=== PATIENT | female | born 1970 | race Caucasian/White ===

== ENCOUNTER → 2016-11-16 | Outpatient (CLI) | payer OTHER ==
[~2016-11-16] MED LIST: CA C1TAB28 PO; DALF10TA PO; DESM10SP4 NS; FOLI1TAB16 PO; METH1POW21 MC; METH2.5T PO; SOLI5TAB2 PO; SULF1TAB23 PO
== END | disposition home or self-care (01) ==
LOC: PMGWOUND 10:58
PROVIDERS: ATTEND Emergency Medicine Undersea and Hyperbaric Medicine
DX: L89.223 Pressure ulcer of left hip, stage 3 (principal); L89.323 Pressure ulcer of left buttock, stage 3; G35 Multiple sclerosis; F17.200 Nicotine dependence, unspecified, uncomplicated; Z72.89 Other problems related to lifestyle
CPT/HCPCS: 97597

== ENCOUNTER → 2016-11-30 | Outpatient (CLI) | payer OTHER | END | disposition home or self-care (01) | LOC: PMGWOUND 11:23 | PROVIDERS: ATTEND Emergency Medicine Undersea and Hyperbaric Medicine | DX: L89.323 Pressure ulcer of left buttock, stage 3 (principal); L89.223 Pressure ulcer of left hip, stage 3; G35 Multiple sclerosis; F17.210 Nicotine dependence, cigarettes, uncomplicated; Z72.89 Other problems related to lifestyle | CPT/HCPCS: 97597 ==

== ENCOUNTER → 2016-12-18 | Outpatient (CLI) | payer OTHER | END | disposition home or self-care (01) | LOC: PMGWOUND 10:35 | PROVIDERS: ATTEND Emergency Medicine Undersea and Hyperbaric Medicine | DX: L89.223 Pressure ulcer of left hip, stage 3 (principal); L89.323 Pressure ulcer of left buttock, stage 3; G35 Multiple sclerosis; F17.210 Nicotine dependence, cigarettes, uncomplicated; Z72.89 Other problems related to lifestyle | CPT/HCPCS: 99214 ==

== ENCOUNTER → 2017-01-01 | Outpatient (CLI) | payer OTHER | END | disposition home or self-care (01) | LOC: PMGWOUND 10:24 | PROVIDERS: ATTEND Preventive Medicine Undersea and Hyperbaric Medicine | DX: L89.323 Pressure ulcer of left buttock, stage 3 (principal); L89.223 Pressure ulcer of left hip, stage 3; G35 Multiple sclerosis; F17.210 Nicotine dependence, cigarettes, uncomplicated; Z72.89 Other problems related to lifestyle | CPT/HCPCS: 99214 ==

== ENCOUNTER → 2017-02-15 | Outpatient (CLI) | payer OTHER | END | disposition home or self-care (01) | LOC: PMGWOUND 10:31 | PROVIDERS: ATTEND Emergency Medicine Undersea and Hyperbaric Medicine | DX: L89.223 Pressure ulcer of left hip, stage 3 (principal); L89.323 Pressure ulcer of left buttock, stage 3; G35 Multiple sclerosis; F17.210 Nicotine dependence, cigarettes, uncomplicated; Z72.89 Other problems related to lifestyle | CPT/HCPCS: 97597 ==

== ENCOUNTER → 2017-08-30 | Outpatient (CLI) | payer OTHER | END | disposition home or self-care (01) | LOC: PMGWOUND 10:00 | DX: L89.223 Pressure ulcer of left hip, stage 3 (principal); G35 Multiple sclerosis; F17.210 Nicotine dependence, cigarettes, uncomplicated | CPT/HCPCS: 99212 ==

== ENCOUNTER 2018-03-24 13:22 | Inpatient (IN) | payer BC, OTHER ==
[~2018-03-24] VITALS: Ht 165.1 cm; Wt 46.3 kg
[2018-03-24 15:00] VITALS: BP 124/73
[2018-03-24 15:33] LABS: BASO % 0 % (0-3); EOS % 0 % (0-3); HEMATOCRIT 38.2 % (36.0-47.0); LYMPH # 0.4 x10^3/uL (1.0-4.8); LYMPH % 3 % (24-48); MEAN CORPUSCULAR HEMOGLOBIN 29 pg (25-35); MEAN CORPUSCULAR HGB CONC 34 g/dL (31-37); MEAN CORPUSCULAR VOLUME 86 fL (79-100); MONO # 0.8 x10^3/uL (0.0-1.1); MONO % 5 % (0-9); NEUT # 13.9 x10^3uL (1.8-7.7); NEUT % 92 % (31-73); PLATELET COUNT 218 x10^3/uL (140-400); RED BLOOD COUNT 4.44 x10^6/uL (3.50-5.40); RED CELL DISTRIBUTION WIDTH 12.9 % (11.5-14.5); WHITE BLOOD COUNT 15.1 x10^3/uL (4.0-11.0)
--- NOTE | 2018-03-24 15:48 | RAD ---
EXAM: Chest, single view. HISTORY: Fever. COMPARISON: None. FINDINGS: A frontal view of the chest is obtained. There is no infiltrate, pleural effusion or pneumothorax. The heart is normal in size. IMPRESSION: No acute pulmonary finding. Electronically signed by: Amanda Gotti MD (03/24/2018 3:45 PM) [place] [id number]
[2018-03-24 15:50] LABS: % BANDS 11 % (0-9); % LYMPHS 2 % (24-48); % MONOS 2 % (0-10); % SEGS 85 % (35-66); CALCIUM 9.4 mg/dL (8.5-10.1); CREATININE 0.9 mg/dL (0.6-1.0); GFR 67.1; PLT ESTIMATE ADEQUATE (ADEQUATE); POTASSIUM 3.5 mmol/L (3.5-5.1)
[2018-03-24] MEDS: cefTRIAXone IV Push 1 GM VIAL. IVP SCH (16:09)
[2018-03-24] MEDS: ACETAMINOPHEN 325 MG TABLET. PO PRN (16:09)
[2018-03-24] MEDS: IV DEXTROSE 5%-LACT RINGERS 1,000 ML IV SCH (16:10)
[2018-03-24] MEDS ORDERED: CHOL100013 PO (16:34)
[2018-03-24 19:00] VITALS: BP 146/53
[2018-03-24] MEDS: LACTOBACILLUS RHAMNOSUS GG 1 CAPSULE. PO SCH (22:06)
[2018-03-24 23:00] VITALS: BP 116/69
[2018-03-25] MEDS: IV DEXTROSE 5%-LACT RINGERS 1,000 ML IV SCH ×3 (01:11→21:59)
[2018-03-25] MEDS: ACETAMINOPHEN 325 MG TABLET. PO PRN ×2 (01:11→18:30)
[2018-03-25 03:00] VITALS: BP 91/49
[2018-03-25 07:00] VITALS: BP 116/67
--- NOTE | 2018-03-25 08:49 | PDOC ---
Provider Note Provider Note [id number] ALLIE VELÁSQUEZ MD Mar 25, 2018 08:49
[2018-03-25] MEDS: LACTOBACILLUS RHAMNOSUS GG 1 CAPSULE. PO SCH ×2 (09:04→21:56)
[2018-03-25 11:00] VITALS: BP 110/54
[2018-03-25 15:00] VITALS: BP 90/71
[2018-03-25] MEDS: cefTRIAXone IV Push 1 GM VIAL. IVP SCH (15:48)
--- NOTE | 2018-03-25 16:23 | HP ---
ADMIT DATE: 03/24/2018 CHIEF COMPLAINT: Fever. HISTORY OF PRESENT ILLNESS: A 48-year-old white female has a history of [id number] multiple sclerosis and is wheelchair bound. She has a suprapubic catheter in place and was feeling well until about 24 hours prior to admission. She has had fever, chills, weakness and malaise, without any other symptoms including cough, congestion, nausea, vomiting, diarrhea, wounds or any other areas specifically of pain. She was seen in the office and felt that she might have a urinary tract infection as the most likely source and admitted for possible sepsis. PAST MEDICAL HISTORY: Well documented with multiple sclerosis and is followed [facility]. No other serious known medical problems. MEDICATIONS: No medications. ALLERGIES: No known allergies. IMMUNIZATIONS: Up-to-date. FAMILY HISTORY: Unremarkable. SOCIAL HISTORY: She has a daughter who lives in the home. , not employed because of illness. REVIEW OF SYSTEMS: No other specific complaints at this time. PHYSICAL EXAMINATION: ENT: All within normal limits. Dentition is mildly reduced. Mucosa pink and moist. NECK: No masses, nodes or meningeal signs. LUNGS: Clear, without tachypnea. CARDIOVASCULAR: Regular rate, tachycardia about 110. No murmur. ABDOMEN: Soft, benign and nontender. BACK: No flank tenderness is noted bilaterally and suprapubic catheter is not examined. EXTREMITIES: Unremarkable. No joint or skin lesions. NEUROLOGIC: She has diffuse contractures and spasticity, consistent with multiple sclerosis diagnosis. ASSESSMENT: Febrile illness with a suprapubic catheter in place because of multiple sclerosis. Most likely source would be urosepsis. PLAN: Admit, IV Rocephin after cultures. ALLIE VELÁSQUEZ MD DR: ELIDA/margaux JOB#: [id number] / [id number]
--- NOTE | 2018-03-25 16:38 | PN ---
DATE: 03/25/2018 SUBJECTIVE: States she is feeling a little bit better than yesterday, though still very weak. She has no specific new symptoms. Temperature still runs in the 100 and 101 range with mild tachycardia. Physical exam still unremarkable. No flank tenderness or new physical findings indicative of a source for infection. White count mildly elevated. Urine culture and blood cultures are pending at this time and the chest x-ray is clear. Still feel like urosepsis is the most likely diagnosis. So we will continue Rocephin, pending urine culture reports. Also, continue IV fluids for support of possible urosepsis as well as more vigorous urine output. ALLIE VELÁSQUEZ MD DR: ELIDA/margaux JOB#: [id number] / [id number]
[2018-03-25] MEDS: IV NORMAL SALINE 1000ML BAG 1,000 ML IV SCH ×2 (19:03→19:21)
[2018-03-25 19:20] VITALS: BP 91/52
[2018-03-25 23:36] VITALS: BP 85/49
[2018-03-26 03:40] VITALS: BP 96/46
[2018-03-26 07:00] VITALS: BP 77/55
[2018-03-26] MEDS: LACTOBACILLUS RHAMNOSUS GG 1 CAPSULE. PO SCH ×2 (09:12→20:25)
[2018-03-26] MEDS: IV DEXTROSE 5%-LACT RINGERS 1,000 ML IV SCH ×3 (09:13→20:25)
[2018-03-26 11:00] VITALS: BP 93/51
[2018-03-26] MEDS ORDERED: SENNOSIDES/DOCUSATE 8.6/50MG TABLET. PO ONE (14:15)
--- NOTE | 2018-03-26 15:06 | PN ---
DATE: 03/26/2018 LOCATION: She is in room 414. SUBJECTIVE: The patient is awake, alert, feeling better and would like to go home. She does understand need for urine culture to come back prior to the same though. OBJECTIVE: VITAL SIGNS: Stable with a T-max of 99.9 in the last 24 hours, which is better. Blood pressures are on the low side. CHEST: Clear. HEART: Regular. ABDOMEN: Benign. No flank tenderness. LABORATORY DATA: White count was 15,000 on admission with a bandemia. Blood cultures are negative to date. Urine culture is pending. Chest x-ray was normal. IMPRESSION: Sepsis, likely on the basis of urinary tract infection, awaiting urine cultures at this point. PLAN: Continue to await cultures. We will recheck CBC in the morning. Otherwise, continue present antibiotics as she is clinically improving. MARY LOU COOLEY MD DR: ARMIDA/margaux JOB#: [id number] / [id number]
[2018-03-26] MEDS: cefTRIAXone IV Push 1 GM VIAL. IVP SCH (16:58)
[2018-03-26 19:00] VITALS: BP 98/51
[2018-03-26 23:00] VITALS: BP 106/64
[2018-03-27 03:00] VITALS: BP 115/56
[2018-03-27] MEDS: IV DEXTROSE 5%-LACT RINGERS 1,000 ML IV SCH ×2 (06:13→16:04)
[2018-03-27 07:00] VITALS: BP 103/57
[2018-03-27 07:21] LABS: BASO % 0 % (0-3); EOS # 0.1 x10^3/uL (0.0-0.7); EOS % 2 % (0-3); HEMATOCRIT 29.3 % (36.0-47.0); HEMOGLOBIN 10.1 g/dL (12.0-15.5); LYMPH # 1.2 x10^3/uL (1.0-4.8); LYMPH % 18 % (24-48); MEAN CORPUSCULAR HEMOGLOBIN 30 pg (25-35); MEAN CORPUSCULAR HGB CONC 35 g/dL (31-37); MEAN CORPUSCULAR VOLUME 86 fL (79-100); MONO # 0.7 x10^3/uL (0.0-1.1); MONO % 11 % (0-9); NEUT # 4.4 x10^3uL (1.8-7.7); NEUT % 69 % (31-73); PLATELET COUNT 171 x10^3/uL (140-400); RED BLOOD COUNT 3.41 x10^6/uL (3.50-5.40); RED CELL DISTRIBUTION WIDTH 12.9 % (11.5-14.5); WHITE BLOOD COUNT 6.4 x10^3/uL (4.0-11.0)
[2018-03-27] MEDS: LACTOBACILLUS RHAMNOSUS GG 1 CAPSULE. PO SCH ×2 (08:41→23:00)
[2018-03-27 11:00] VITALS: BP 97/55
--- NOTE | 2018-03-27 14:40 | PDOC ---
Infectious Disease Note Vital Sign Vital Signs Vital Signs Date Time Temp Pulse Resp B/P (MAP) Pulse Ox O2 Delivery O2 Flow Rate FiO2 03/27/18 11:00 98.3 85 18 97/55 (69) 98 Room Air 98.3 Labs Lab Laboratory Tests Test 03/27/18 07:05 White Blood Count 6.4 x10^3/uL (4.0-11.0) Red Blood Count 3.41 x10^6/uL (3.50-5.40) Hemoglobin 10.1 g/dL (12.0-15.5) Hematocrit 29.3 % (36.0-47.0) Mean Corpuscular Volume 86 fL (79-100) Mean Corpuscular Hemoglobin 30 pg (25-35) Mean Corpuscular Hemoglobin Concent 35 g/dL (31-37) Red Cell Distribution Width 12.9 % (11.5-14.5) Platelet Count 171 x10^3/uL (140-400) Neutrophils (%) (Auto) 69 % (31-73) Lymphocytes (%) (Auto) 18 % (24-48) Monocytes (%) (Auto) 11 % (0-9) Eosinophils (%) (Auto) 2 % (0-3) Basophils (%) (Auto) 0 % (0-3) Neutrophils # (Auto) 4.4 x10^3uL (1.8-7.7) Lymphocytes # (Auto) 1.2 x10^3/uL (1.0-4.8) Monocytes # (Auto) 0.7 x10^3/uL (0.0-1.1) Eosinophils # (Auto) 0.1 x10^3/uL (0.0-0.7) Basophils # (Auto) 0.0 x10^3/uL (0.0-0.2) Micro 03/25/18 Blood Culture - Preliminary, Resulted NO GROWTH AFTER 2 DAYS URINE CULTURE RES 1 Final Comment Greater than 2 organisms recovered, none predominant. Objective Assessment Sepsis w/ hypotension responsive to IVF Fever Leukocytosis - better MS Chronic supra-pubic catheter Plan Plan of Care Change to Zyvox and Zosyn Change supra-pubic cath CT abd/pelvis w/o contrast Probiotics Monitor labs/temp Supportive care D/w RN Thank you [id number] Pt seen and examined. Lab and other data reviewed Above Assessment and plan coformulated with [employer] . RALF CA APRN Mar 27, 2018 14:40 LEONARDO SUTTON MD Mar 27, 2018 15:38
[2018-03-27] MEDS: LINEZOLID 600 MG TABLET PO SCH ×2 (16:04→23:00)
[2018-03-27] MEDS: PIPERACILLIN/TAZOBACTAM 3.375 GM in IV NORMAL SALINE 50ML 50 ML IV SCH ×2 (16:05→23:00)
[2018-03-27 16:21] LABS: BILIRUBIN,URINE NEGATIVE (NEG); CLARITY,URINE CLEAR; COLOR,URINE YELLOW; NITRITE,URINE NEGATIVE (NEG); PH,URINE 8.5; PROTEIN,URINE NEGATIVE (NEG-TRACE); UROBILINOGEN,URINE 0.2 mg/dL (0.2 mg/dL)
[2018-03-27 16:50] LABS: SQUAMOUS EPITHELIAL CELL,UR OCC /LPF
[2018-03-27 16:51] LABS: BACTERIA,URINE MODERATE /HPF (0-FEW)
--- NOTE | 2018-03-27 18:10 | RAD ---
CT Abdomen; CT Pelvis without contrast INDICATION: FEVER, UTI COMPARISON: None. TECHNIQUE: Multiple contiguous axial images were obtained throughout the abdomen, and pelvis without the use of IV contrast. Axial images were reformatted into coronal and sagittal planes. FINDINGS: Small bilateral pleural effusions with resultant relaxation atelectasis. Abdomen findings: Evaluation of solid abdominal viscera is limited without the use of IV contrast. However, the liver, spleen, pancreas, and adrenal glands are unremarkable. Contracted gallbladder. No radiopaque gallstone or pericholecystic fluid. 0.5 cm obstructive calculus at the right ureteropelvic junction results in moderate right hydronephrosis and perinephric fat stranding. Additional bilateral punctate nonobstructive renal calculi. There is no significant mesenteric or retroperitoneal adenopathy identified, though evaluation is limited without intravenous contrast. There is no evidence of free intraperitoneal fluid or pneumoperitoneum. Large amount of colonic stool. Visualized portions of the bowel otherwise are grossly unremarkable. Mild atherosclerosis of the abdominal aorta and its branches. Pelvis findings: Suprapubic bladder catheter. No obvious bladder wall thickening. 0.8 x 0.2 cm calcific density in the region of the left ureterovesicular junction. Mild pelvic free fluid. No significant iliac or inguinal adenopathy is identified. No acute osseous abdomen abnormality. Suggestion of diffuse osteopenia. IMPRESSION: 1. 0.5 cm obstructive calculus at the right ureteropelvic junction results in moderate right hydronephrosis and perinephric fat stranding. 2. 0.8 x 0.2 cm calcific density in the region of the left ureterovesicular junction may relate to bladder wall calcification versus recently passed stone. No left hydronephrosis or hydroureter. 3. Additional bilateral punctate nonobstructive renal calculi. 4. Large amount of colonic stool. Correlate for constipation. 5. Small bilateral pleural effusions with resultant relaxation atelectasis. 6. Small amount of pelvic free fluid. PQRS Compliance Statement: One or more of the following individualized dose reduction techniques were utilized for this examination: 1. Automated exposure control 2. Adjustment of the mA and/or kV according to patient size 3. Use of iterative reconstruction technique Electronically signed by: Bry Castellon MD (03/27/2018 6:06 PM) [facility]
[2018-03-27 19:30] VITALS: BP 103/60
--- NOTE | 2018-03-27 19:45 | CONS ---
DATE OF CONSULTATION: 03/27/2018 REFERRING PHYSICIAN: Dr. Jean. REASON FOR CONSULTATION: Fever. HISTORY OF PRESENT ILLNESS: This patient is a 48-year-old female with a PMH of multiple sclerosis with a suprapubic catheter in place. While folding laundry, she became acutely weak and fatigued. She fell asleep and a few hours later, woke up with fever. She was found to have elevated white blood cell count of 15,100, segs 85% and bands 11%. She was dosed with ceftriaxone empirically for possibly urinary tract infection. Since admission, she had developed some hypotension responsive to IV fluids. Her white blood cell count has returned to normal. Clinically, she has been improving and is hoping to go home soon. However, last night she spiked a temperature of 101.3. Hence, ID consult. The patient has had the suprapubic catheter for about 2 years. It is normally changed every month. Aside from foul odor, she denies any drainage or redness around the insertion site. She denies chills or body aches. She denies cough, shortness of air or chest discomfort. Denies headache, nasal/sinus congestion or sore throat. Her bowels are fairly regular every other day. However, this week, they have been somewhat irregular and needed a stool softener. Her last bowel movement was yesterday. She denies nausea or vomiting. She has not been hospitalized in many years and has not been on any antibiotics over the last 12 months or more. PAST MEDICAL HISTORY: Multiple sclerosis, urinary retention. PAST SURGICAL HISTORY: Suprapubic catheter placement, section. SOCIAL HISTORY: The patient lives at home. She is wheelchair bound. She is . Her daughter lives with her. FAMILY HISTORY: Noncontributory. ALLERGIES: No known drug allergies. MEDICATIONS: Ceftriaxone, Tylenol, probiotics, IV fluids. REVIEW OF SYSTEMS: Per HPI, otherwise all other review of systems are negative. PHYSICAL EXAMINATION: GENERAL: The patient is slightly propped up in bed, alert, smiling. VITAL SIGNS: Temperature is 98.3, T-max 101.3, blood pressure 97/55, heart rate 85, respiratory rate 18, pulse oximetry is 98% on room air. HEENT: Normal conjunctivae. Oral cavity pink and dry. NECK: Supple. LUNGS: Clear to auscultation. HEART: S1, S2. ABDOMEN: Nondistended. Bowel sounds active. Soft, nontender. Suprapubic catheter intact. No signs of infection. EXTREMITIES: No gross edema or cyanosis. SKIN: Warm without rash. NEUROLOGIC: Alert and oriented x 3. LABORATORY DATA: Today's WBC 6.4 from 15.1, hemoglobin 10.1, platelet count 171,000. Recent sodium 134, potassium 3.5, creatinine 0.9, BUN 17, glucose 162. Lactic acid 1.3. Blood cultures from 03/24/2018 and 03/25/2018 negative to date. Urine culture from 03/24/2018 show greater than 2 organisms recovered non-predominant. There is no urinalysis performed. Chest x-ray shows no acute pulmonary finding. IMPRESSION: 1. Sepsis with hypotension. 2. Fever. 3. Leukocytosis, improved. 4. Multiple sclerosis. 5. Chronic suprapubic catheter. PLAN: A urinalysis with a repeat culture if indicated has been ordered. We will broaden out the antibiotic to Zyvox and Zosyn given previous culture of more than 2 organisms recovered. Change the suprapubic catheter. We will obtain a CT abdominal/pelvis without contrast. Probiotics. Continue to monitor laboratory values and temperature. Supportive care. Thank you, Dr. Jean for asking us to participate in this patient's care. Should you have further questions or concerns, please call. The patient seen and examined and plan of care implemented by Dr. Leonardo Sutton. LEONARDO SUTTON MD DR: NIKKI/margaux JOB#: [id number] / [id number]
[2018-03-27 20:01] VITALS: BP 103/60
--- NOTE | 2018-03-27 21:24 | PN ---
DATE: 03/27/2018 LOCATION: She is in room 414. SUBJECTIVE: The patient is awake and alert, understands holding on discharge at this point in time with again running a fever last evening to 101.3. States she did not feel the best while that was happening, but feels better again this morning. OBJECTIVE: VITAL SIGNS: Stable with T-max of 101.3. CHEST: Clear. HEART: Regular. ABDOMEN: Benign. LABORATORY DATA: White count has dramatically improved from admission, going from 15,100 with left shift, down to 6400 with normal differential. Urine culture shows greater than 2 organisms, none predominant. Another sample is suggested if clinically indicated. IMPRESSION: Ongoing fevers with probable urinary tract as the source. PLAN: We will ask ID for their opinion on this. Continue antibiotics. We will repeat urine at this point in time, although with a suprapubic catheter placement, would expect that she always has some colonization. MARY LOU COOLEY MD DR: ARMIDA/margaux JOB#: [id number] / [id number]
[2018-03-27 23:19] VITALS: BP 117/57
[2018-03-28 03:30] VITALS: BP 91/50
[2018-03-28] MEDS: PIPERACILLIN/TAZOBACTAM 3.375 GM in IV NORMAL SALINE 50ML 50 ML IV SCH ×3 (06:00→17:27)
[2018-03-28 07:00] VITALS: BP 103/55
--- NOTE | 2018-03-28 08:23 | PDOC ---
Provider Note Provider Note [id number] ALLIE VELÁSQUEZ MD Mar 28, 2018 08:23
[2018-03-28] MEDS: LINEZOLID 600 MG TABLET PO SCH ×2 (08:24→20:42)
[2018-03-28] MEDS: TAMSULOSIN 0.4 MG CAP.ER.24H. PO SCH (08:24)
[2018-03-28] MEDS: LACTOBACILLUS RHAMNOSUS GG 1 CAPSULE. PO SCH ×2 (08:24→20:42)
[2018-03-28] MEDS: POTASSIUM CL 20MEQ D5-0.45NACL 1,000 ML IV SCH ×3 (08:25→20:49)
--- NOTE | 2018-03-28 09:08 | PDOC2 ---
RADHA HODGES SHERIE 03/28/18 0908: UROLOGY CONSULT Date of Consult Date of Consult DATE: 03/28/18 TIME: 09:01 Reason for Consult Reason for Consult: Kidney stone Identification/Chief Complaint Chief Complaint Kidney stone Source Source: Caregiver, Chart review, Patient History of Present Illness Reason for Visit: Patient is a 48 year old female with history of MS presents with 0.5 cm obstructive calculus at the right UPJ with moderate right hydronephrosis and perinephric fat stranding. There is also a 0.8 by 0.2 calcific density in the region of the left UVJ which may be bladder wall calcification versus recently passed stone. Despite this, patient denies any hematuria, flank or belly pain. Admits that this is her first time ever having a kidney stone. She does have a history of MS which left her wheelchair bound and then completely incontinent about a year and a half ago, which is why she has an SP tube. The SP tube was inserted by Dr. Sanchez at and has been maintained by him; she denies any trouble with it and feels like it is working well currently. She does admit some constipation, but is otherwise comfortable. She is resistant to the idea of surgery to correct the kidney stones and would like to wait a day or two if possible before proceeding to surgery. . Past Medical History GI: Constipation (Chronic issue for her, but feels bad today. ) Musculoskeletal: Other (Wheelchair bound secondary to MS ) Renal/: Other (Chronic SP tube for MS related incontinence) Current Problem List Problems: (1) Kidney stone Current Medications Current Medications Current Medications Linezolid (Zyvox) 600 mg BID PO Last administered on 03/28/18at 08:24; Start 03/27/18 at 15:00 Piperacillin Sod/ Tazobactam Sod 3.375 gm/Sodium Chloride 50 ml @ 100 mls/hr Q6HRS IV Last administered on 03/27/18at 23:00; Start 03/27/18 at 15:00 Potassium Chloride/Dextrose/ Sod Cl 1,000 ml @ 100 mls/hr Q10H IV Last administered on 03/28/18at 08:25; Start 03/28/18 at 08:30 Tamsulosin HCl (Flomax) 0.4 mg DAILY PO Last administered on 10/22/18at 08:24; Start 03/28/18 at 09:00 Allergies Allergies: Coded Allergies: No Known Drug Allergies (Unverified , 06/09/13) ROS Review Of Systems: CONSTITUTIONAL: + fever last night. EYES: No recent changes SKIN: No rash or itching CARDIOVASCULAR: No chest pain, syncope, palpitations, or edema RESPIRATORY: No SOB or cough GASTROINTESTINAL: + constipation NEUROLOGICAL: No headaches or weakness ENDOCRINE: No cold or heat intolerance GENITOURINARY: + sp tube in place MUSCULOSKELETAL: No back pain or joint pain LYMPHATICS: No enlarged lymph nodes PSYCHIATRIC: No anxiety or depression Physical Exam Physical Exam: General: Pleasant, no acute distress, well groomed Eyes: conjunctiva anicteric, eyes full range of motion ENT: moist oral mucosa, normal dentition Neck: Trachea midline, no masses Respiratory: unlabored breathing, not using accessory muscles Abdomen: firm, non tender. SP tube in place draining clear yellow urine. Skin: no rashes or skin lesions on visualized skin Psych: normal mood, affect. Alert and oriented x 3. Vitals VITALS Vital Signs Date Time Temp Pulse Resp B/P (MAP) Pulse Ox O2 Delivery O2 Flow Rate FiO2 03/28/18 07:30 Room Air 03/28/18 07:00 98.6 83 18 103/55 (71) 95 98.6 Labs Labs Laboratory Tests Test 03/27/18 07:05 03/27/18 16:00 White Blood Count 6.4 x10^3/uL (4.0-11.0) Red Blood Count 3.41 x10^6/uL (3.50-5.40) Hemoglobin 10.1 g/dL (12.0-15.5) Hematocrit 29.3 % (36.0-47.0) Mean Corpuscular Volume 86 fL (79-100) Mean Corpuscular Hemoglobin 30 pg (25-35) Mean Corpuscular Hemoglobin Concent 35 g/dL (31-37) Red Cell Distribution Width 12.9 % (11.5-14.5) Platelet Count 171 x10^3/uL (140-400) Neutrophils (%) (Auto) 69 % (31-73) Lymphocytes (%) (Auto) 18 % (24-48) Monocytes (%) (Auto) 11 % (0-9) Eosinophils (%) (Auto) 2 % (0-3) Basophils (%) (Auto) 0 % (0-3) Neutrophils # (Auto) 4.4 x10^3uL (1.8-7.7) Lymphocytes # (Auto) 1.2 x10^3/uL (1.0-4.8) Monocytes # (Auto) 0.7 x10^3/uL (0.0-1.1) Eosinophils # (Auto) 0.1 x10^3/uL (0.0-0.7) Basophils # (Auto) 0.0 x10^3/uL (0.0-0.2) Urine Collection Type Unknown Urine Color Yellow Urine Clarity Clear Urine pH 8.5 Urine Specific Luke 1.010 Urine Protein Negative mg/dL (NEG-TRACE) Urine Glucose (UA) Negative mg/dL (NEG) Urine Ketones (Stick) Negative mg/dL (NEG) Urine Blood Moderate (NEG) Urine Nitrite Negative (NEG) Urine Bilirubin Negative (NEG) Urine Urobilinogen Dipstick 0.2 mg/dL (0.2 mg/dL) Urine Leukocyte Esterase Large (NEG) Urine RBC 6-10 /HPF (0-2) Urine WBC 11-20 /HPF (0-4) Urine Squamous Epithelial Cells Occ /LPF Urine Bacteria Moderate /HPF (0-FEW) Urine Mucus Slight /LPF Laboratory Tests Test 03/27/18 16:00 Urine Collection Type Unknown Urine Color Yellow Urine Clarity Clear Urine pH 8.5 Urine Specific Luke 1.010 Urine Protein Negative mg/dL (NEG-TRACE) Urine Glucose (UA) Negative mg/dL (NEG) Urine Ketones (Stick) Negative mg/dL (NEG) Urine Blood Moderate (NEG) Urine Nitrite Negative (NEG) Urine Bilirubin Negative (NEG) Urine Urobilinogen Dipstick 0.2 mg/dL (0.2 mg/dL) Urine Leukocyte Esterase Large (NEG) Urine RBC 6-10 /HPF (0-2) Urine WBC 11-20 /HPF (0-4) Urine Squamous Epithelial Cells Occ /LPF Urine Bacteria Moderate /HPF (0-FEW) Urine Mucus Slight /LPF Images Images IMPRESSION: 1. 0.5 cm obstructive calculus at the right ureteropelvic junction results in moderate right hydronephrosis and perinephric fat stranding. 2. 0.8 x 0.2 cm calcific density in the region of the left ureterovesicular junction may relate to bladder wall calcification versus recently passed stone. No left hydronephrosis or hydroureter. 3. Additional bilateral punctate nonobstructive renal calculi. 4. Large amount of colonic stool. Correlate for constipation. 5. Small bilateral pleural effusions with resultant relaxation atelectasis. 6. Small amount of pelvic free fluid. Assessment/Plan Assessment/Plan Right UPJ obstructive calculus: Discussed surgery with patient and she is resistant to this today. Since EXPORT [employer] MANAGER WNL and WBC ok currently, can observe for one more night and get a KUB in the am. However, patient understands that we may have to look more seriously at surgery if kidney stone does not show some progress by tomorrow morning. All questions answered. Continue IVF GI consult for constipation SP tube, nursing staff to maintain and please strain all urine collected. NPO at midnight. ELLIE MCELROY MD 03/28/18 1739: UROLOGY CONSULT Assessment/Plan Assessment/Plan 48 yo F with MS and neurogenic bladder managed with SP tube and botox and recurrent UTI who presents with sepsis. On 03/27 she was noted to have an obstructing proximal right ureteral stone. She has been afebrile x 48 hrs. Repeat WBC is WNL. Urine culture is polymicrobial and was not speciated. Discussed management of obstructing ureteral stones with UTIs typically involves urgency stent placement with delayed ureteroscopy and laser lithotripsy. Given her improvement and NPO status we will plan on stent placement tomorrow. Procedure, including risks and benefits was reviewed in detail. NPO at NE. She will f/u with Dr. Sanchez for repeat botox injection and definitive stone management. RADHA HODGES APRN Mar 28, 2018 09:08 ELLIE MCELROY MD Mar 28, 2018 17:39
[2018-03-28 09:31] LABS: CALCIUM 8.5 mg/dL (8.5-10.1); CREATININE 0.6 mg/dL (0.6-1.0); GFR 107.2; POTASSIUM 3.2 mmol/L (3.5-5.1)
--- NOTE | 2018-03-28 09:41 | PDOC ---
Infectious Disease Note Subjective Subjective feeling better ROS ROS no n/v/d/fever/sob Vital Sign Vital Signs Vital Signs Date Time Temp Pulse Resp B/P (MAP) Pulse Ox O2 Delivery O2 Flow Rate FiO2 03/28/18 07:30 Room Air 03/28/18 07:00 98.6 83 18 103/55 (71) 95 98.6 Physical Exam PHYSICAL EXAM GENERAL: The patient is slightly propped up in bed, alert, smiling. VITAL SIGNS: stable HEENT: Normal conjunctivae. Oral cavity pink and dry. NECK: Supple. LUNGS: Clear to auscultation. HEART: S1, S2. ABDOMEN: Nondistended. Bowel sounds active. Soft, nontender. Suprapubic catheter intact. No signs of infection. EXTREMITIES: No gross edema or cyanosis. SKIN: Warm without rash. NEUROLOGIC: Alert and oriented x 3. Labs Lab Laboratory Tests Test 03/27/18 16:00 03/28/18 09:05 Urine Collection Type Unknown Urine Color Yellow Urine Clarity Clear Urine pH 8.5 Urine Specific Fonda 1.010 Urine Protein Negative mg/dL (NEG-TRACE) Urine Glucose (UA) Negative mg/dL (NEG) Urine Ketones (Stick) Negative mg/dL (NEG) Urine Blood Moderate (NEG) Urine Nitrite Negative (NEG) Urine Bilirubin Negative (NEG) Urine Urobilinogen Dipstick 0.2 mg/dL (0.2 mg/dL) Urine Leukocyte Esterase Large (NEG) Urine RBC 6-10 /HPF (0-2) Urine WBC 11-20 /HPF (0-4) Urine Squamous Epithelial Cells Occ /LPF Urine Bacteria Moderate /HPF (0-FEW) Urine Mucus Slight /LPF Sodium Level 144 mmol/L (136-145) Potassium Level 3.2 mmol/L (3.5-5.1) Chloride Level 107 mmol/L (98-107) Carbon Dioxide Level 27 mmol/L (21-32) Anion Gap 10 (6-14) Blood Urea Nitrogen 3 mg/dL (7-20) Creatinine 0.6 mg/dL (0.6-1.0) Estimated GFR (Cockcroft-Gault) 107.2 Glucose Level 122 mg/dL (70-99) Calcium Level 8.5 mg/dL (8.5-10.1) Micro Microbiology 03/25/18 Blood Culture - Preliminary, Resulted NO GROWTH AFTER 3 DAYS 03/24/18 Urine Culture - Final, Complete 03/24/18 Urine Culture Result 1 (NICOLLE) - Final, Complete Objective Assessment Sepsis w/ hypotension responsive to IVF Fever Leukocytosis - better MS Chronic supra-pubic catheter Ureteral stone with obstruction Plan Plan of Care Zyvox and Zosyn Change supra-pubic cath Probiotics Monitor labs/temp Supportive care D/w LILIYA HERCULES MD Mar 28, 2018 09:41
[2018-03-28 11:00] VITALS: BP_SYST 95; BP_SYST 99; BP_DIAS 47; BP_DIAS 50
--- NOTE | 2018-03-28 11:19 | PDOC2 ---
GI CONSULT Reason For Consult: Constipation HPI: HPI: Patient is a 48 year old female with history of MS who was originally admitted for sepsis secondary to a UTI. Recent CT A/P revealed a 0.5 cm obstructive calculus at the right UPJ with moderate right hydronephrosis and perinephric fat stranding. There is also a 0.8 by 0.2 calcific density in the region of the left UVJ which may be bladder wall calcification versus recently passed stone. Admits that this is her first time ever having a kidney stone. She does have a history of MS which left her wheelchair bound and then completely incontinent about a year and a half ago, which is why she has an SP tube. The SP tube was inserted by Dr. Sanchez at and has been maintained by him; she denies any trouble with it and feels like it is working well currently. She is resistant to the idea of surgery to correct the kidney stones and would like to wait a day or two if possible before proceeding to surgery. Recent CT scan also revealed a large amount of stool in the colon, c/w constipation. GI was consulted for this reason. She reports that she usually has a BM every other day at home. She does not take any laxatives or stool softeners at home to help her bowels. She had not had a BM from last Wednesday up until Wednesday. She was given Senokot on Wednesday and was told by nursing staff that she had a BM with this, though pt did not notice when she had had the BM. She does not believe she has had any further BM's since that time. She prefers to try oral medications and does not want to use an enema or suppository unless absolutely necessary. She has not had a colonoscopy. 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 FH: Family History: No pertinent hx ROS: GEN: Denies fevers, chills, sweats HEENT: Denies blurred vision, sore throat CV: Denies chest pain RESP: Denies shortness of air, cough GI: Per HPI : Denies hematuria, dysuria ENDO: Denies weight changes NEURO: Denies confusion, dizziness MSK: Denies weakness, joint pain/swelling SKIN: Denies jaundice, pruritus Vitals: Vitals: Vital Signs Date Time Temp Pulse Resp B/P (MAP) Pulse Ox O2 Delivery O2 Flow Rate FiO2 10/22/18 07:30 Room Air 03/28/18 07:00 98.6 83 18 103/55 (71) 95 98.6 Labs: Labs: Laboratory Tests Test 03/27/18 16:00 03/28/18 09:05 Urine Collection Type Unknown Urine Color Yellow Urine Clarity Clear Urine pH 8.5 Urine Specific Arnold 1.010 Urine Protein Negative mg/dL (NEG-TRACE) Urine Glucose (UA) Negative mg/dL (NEG) Urine Ketones (Stick) Negative mg/dL (NEG) Urine Blood Moderate (NEG) Urine Nitrite Negative (NEG) Urine Bilirubin Negative (NEG) Urine Urobilinogen Dipstick 0.2 mg/dL (0.2 mg/dL) Urine Leukocyte Esterase Large (NEG) Urine RBC 6-10 /HPF (0-2) Urine WBC 11-20 /HPF (0-4) Urine Squamous Epithelial Cells Occ /LPF Urine Bacteria Moderate /HPF (0-FEW) Urine Mucus Slight /LPF Sodium Level 144 mmol/L (136-145) Potassium Level 3.2 mmol/L (3.5-5.1) Chloride Level 107 mmol/L (98-107) Carbon Dioxide Level 27 mmol/L (21-32) Anion Gap 10 (6-14) Blood Urea Nitrogen 3 mg/dL (7-20) Creatinine 0.6 mg/dL (0.6-1.0) Estimated GFR (Cockcroft-Gault) 107.2 Glucose Level 122 mg/dL (70-99) Calcium Level 8.5 mg/dL (8.5-10.1) Allergies: Coded Allergies: No Known Drug Allergies (Unverified , 06/09/13) Medications: Current Medications Medications (Trade) Dose Ordered Sig/Rajendra Route PRN Reason Start Time Stop Time Status Last Admin Dose Admin Piperacillin Sod/ Tazobactam Sod 3.375 gm/Sodium Chloride 50 ml @ 100 mls/hr Q6HRS IV 03/27/18 15:00 03/27/18 23:00 Linezolid (Zyvox) 600 mg BID PO 03/27/18 15:00 03/28/18 08:24 Potassium Chloride/Dextrose/ Sod Cl 1,000 ml @ 100 mls/hr Q10H IV 03/28/18 08:30 03/28/18 08:25 Tamsulosin HCl (Flomax) 0.4 mg DAILY PO 03/28/18 09:00 03/28/18 08:24 Imaging: Imaging: CT A/P 03/28/18 IMPRESSION: 1. 0.5 cm obstructive calculus at the right ureteropelvic junction results in moderate right hydronephrosis and perinephric fat stranding. 2. 0.8 x 0.2 cm calcific density in the region of the left ureterovesicular junction may relate to bladder wall calcification versus recently passed stone. No left hydronephrosis or hydroureter. 3. Additional bilateral punctate nonobstructive renal calculi. 4. Large amount of colonic stool. Correlate for constipation. 5. Small bilateral pleural effusions with resultant relaxation atelectasis. 6. Small amount of pelvic free fluid. PE: GEN: NAD HEENT: Atraumatic, PERRLA LUNGS: CTAB HEART: RRR, no murmurs ABD: generalized abdominal discomfort EXTREMITY: No edema SKIN: No rashes, no jaundice NEURO/PSYCH: A & O 3 A/P: A/P: Constipation -Large amount of stool noted on recent colonoscopy -Pt last had BM on Wednesday after given Senokot -Favor trial of MiraLax Sepsis due to UTI -Continue antibiotics per ID Renal calculi -Pt followed by urology EVELINE VENEGAS Mar 28, 2018 11:18
[2018-03-28] MEDS ORDERED: POLYETHYLENE GLYCOL 3350 17 GM PACKET. PO PRN (11:30)
--- NOTE | 2018-03-28 11:36 | PN ---
DATE: 03/28/2018 The patient spiked his temperature 36 hours ago and then was switched to Zyvox and Zosyn as indication of Rocephin failure. Urine culture had multiple organisms and blood cultures had no growth so far. CT shows 5 mm stone at the ureteropelvic junction with some moderate hydronephrosis and this is likely contributing to her infection. We will continue IV fluids for high urine output. We will add Flomax and continue the two IV drugs and have urologic consultation involved as well, although 5 mm stone certainly should pass on its own. The patient clinically is much better than on admission and labs are good, but we will recheck renal function today. ALLIE VELÁSQUEZ MD DR: ELIDA/margaux JOB#: [id number] / [id number]
[2018-03-28 15:00] VITALS: BP 94/56
[2018-03-28 19:00] VITALS: BP 97/47
[2018-03-28 23:00] VITALS: BP 106/33
[2018-03-29] VITALS (9 sets, daily range): BP systolic 84–138; BP diastolic 42–87
[2018-03-29] MEDS: PIPERACILLIN/TAZOBACTAM 3.375 GM in IV NORMAL SALINE 50ML 50 ML IV SCH ×5 (00:35→23:35)
--- NOTE | 2018-03-29 08:06 | RAD ---
KUB, 03/29/2018: HISTORY: Right-sided kidney stone There is a moderate amount gas and stool in the colon largely obscuring the renal regions. The small calculus seen in the proximal right ureter on the CT study of 03/27/2018 is not visible. This could be due to obscuration by overlying stool or interval passage of the calculus. Clinical correlation is suggested. There is a small radiopacity overlying the urinary bladder at the midline which may represent a bladder calculus. A similar density was evident at the left UVJ level on the previous CT study. There is no evidence organomegaly. IMPRESSION: 1. The patient's previously seen proximal right ureteral calculus is not visible radiographically. 2. Small radiopacity projected over the urinary bladder at the midline, likely representing a bladder calculus. Electronically signed by: Yobany Montenegro MD (03/29/2018 8:02 AM) [facility]
--- NOTE | 2018-03-29 08:25 | PDOC ---
Provider Note Provider Note [id number] ALLIE VELÁSQUEZ MD Mar 29, 2018 08:25
[2018-03-29] MEDS: TAMSULOSIN 0.4 MG CAP.ER.24H. PO SCH (08:37)
[2018-03-29] MEDS: LACTOBACILLUS RHAMNOSUS GG 1 CAPSULE. PO SCH ×2 (08:37→21:02)
[2018-03-29] MEDS: LINEZOLID 600 MG TABLET PO SCH ×2 (08:38→21:02)
--- NOTE | 2018-03-29 08:38 | PN ---
DATE: 03/29/2018 The patient is afebrile now for more than 48 hours with current meds and BMP is still normal with mildly low potassium, but she is on IV potassium now. She is planned to have ureteroscopy and stent placement because of her proximal right ureteral stone and no new problems are present at this time. ALLIE VELÁSQUEZ MD DR: ELIDA/margaux JOB#: [id number] / [id number]
[2018-03-29] MEDS: POTASSIUM CL 20MEQ D5-0.45NACL 1,000 ML IV SCH ×2 (08:39→23:35)
[2018-03-29] MEDS ORDERED: IV RINGERS,LACTATED 1000ML 1,000 ML IV SCH (09:06)
[2018-03-29] MEDS ORDERED: fentaNYL PF VIAL 100 MCG/2 ML VIAL IV PRN ×2 (09:15)
[2018-03-29] MEDS ORDERED: HYDROmorphone 2 MG/ML VIAL IV PRN (09:15)
[2018-03-29] MEDS ORDERED: ONDANSETRON PF 4 MG/2 ML VIAL. IV PRN (09:15)
[2018-03-29] MEDS ORDERED: MORPHINE SULFATE 2 MG/ML VIAL. IV PRN (09:15)
[2018-03-29] MEDS ORDERED: PROCHLORPERAZINE 10 MG/2 ML VIAL. IV PRN (09:15)
[2018-03-29] MEDS ORDERED: LIDOCAINE 1% PF 2 ML VIAL. ID PRN (09:15)
--- NOTE | 2018-03-29 09:43 | PDOC ---
Infectious Disease Note Subjective Subjective feeling better ROS ROS no n/v/d/sob Vital Sign Vital Signs Vital Signs Date Time Temp Pulse Resp B/P (MAP) Pulse Ox O2 Delivery O2 Flow Rate FiO2 03/29/18 07:00 98.3 75 18 89/42 (58) 100 Room Air 98.3 Physical Exam PHYSICAL EXAM GENERAL: The patient is slightly propped up in bed, alert, smiling. VITAL SIGNS: stable HEENT: Normal conjunctivae. Oral cavity pink and dry. NECK: Supple. LUNGS: Clear to auscultation. HEART: S1, S2. ABDOMEN: Nondistended. Bowel sounds active. Soft, nontender. Suprapubic catheter intact. No signs of infection. EXTREMITIES: No gross edema or cyanosis. SKIN: Warm without rash. NEUROLOGIC: Alert and oriented x 3. unable to use legs Labs Micro Microbiology 03/25/18 Blood Culture - Preliminary, Resulted NO GROWTH AFTER 3 DAYS 03/24/18 Urine Culture - Final, Complete 03/24/18 Urine Culture Result 1 (NICOLLE) - Final, Complete Objective Assessment Sepsis w/ hypotension responsive to IVF Fever Leukocytosis - better MS Chronic supra-pubic catheter Ureteral stone with obstruction Plan Plan of Care Zyvox and Zosyn Change supra-pubic cath Probiotics Monitor labs/temp Supportive care D/w RN cysto today LESLEY,LILIYA Jara MD Mar 29, 2018 09:43
[2018-03-29] MEDS ORDERED: PROPOFOL 20 ML IV ONE (13:52)
[2018-03-29] MEDS ORDERED: DEXAMETHASONE SOD PHOS 20 MG/5 ML VIAL. ONE (13:52)
[2018-03-29] MEDS ORDERED: ONDANSETRON PF 4 MG/2 ML VIAL. ONE (13:52)
[2018-03-29] MEDS ORDERED: LIDOCAINE 2% PF Vial for OR 5 ML VIAL. ONE (13:52)
[2018-03-29] MEDS ORDERED: LIDOCAINE 2% JELLY 6ML IN APPLICATOR. ONE (13:57)
[2018-03-29] MEDS ORDERED: IOHEXOL 300 MG/ML 100ML VIAL. ONE (13:57)
--- NOTE | 2018-03-29 14:05 | PDOC ---
Subjective: Subjective: Was awaiting urology procedure when I saw during [facility] downtime. NPO for this. Last stooled on Sat or Sun - took Miralax yesterday and had abd cramping today. Objective: Vital Signs: Vital Signs Date Time Temp Pulse Resp B/P (MAP) Pulse Ox O2 Delivery O2 Flow Rate FiO2 03/29/18 13:27 97.7 72 15 97/57 99 Room Air 97.7 Imaging: KUB 03/29 IMPRESSION: 1. The patient's previously seen proximal right ureteral calculus is not visible radiographically. 2. Small radiopacity projected over the urinary bladder at the midline, likely representing a bladder calculus. PE: GEN: NAD LUNGS: CTAB HEART: RRR ABD: soft, non-tender, NABS NEURO/PSYCH: A & O 3 A/P: Sepsis Obstructive ureteral stone MS Constipation - large amount of stool on CT -- Cramping after Miralax. Pyelogram w/ stent placement today per urology. Schedule Miralax - can increase to BID if indicated. CLAUS VICK Mar 29, 2018 14:05
[2018-03-29] MEDS ORDERED: BISACODYL 5 MG TABLET.DR. PO PRN (14:15)
[2018-03-29] MEDS ORDERED: SEVOFLURANE 61 TO 120 MINUTES. IH ONE (15:39)
--- NOTE | 2018-03-29 16:16 | PDOC ---
BRIEF OPERATIVE NOTE Pre-Op Diagnosis right ureteral stone, sepsis Post-Op Diagnosis same Procedure Performed cystoscopy, right retrograde pyelogram, ureteral stent placement Surgeon Emily Plant Puller None Anesthesia Type: General Blood Loss < 5 cc Specimens Obtained None Findings As dictated Complications None Operative Note Dictation # [id number] ELLIE MCELROY MD Mar 29, 2018 16:16
[2018-03-29] MEDS: POLYETHYLENE GLYCOL 3350 17 GM PACKET. PO SCH ×2 (17:01→20:51)
--- NOTE | 2018-03-29 17:09 | OP ---
DATE OF SURGERY: 03/24/2018 PREOPERATIVE DIAGNOSES: 1. Obstructing proximal right ureteral stone. 2. Urinary sepsis. POSTOPERATIVE DIAGNOSES: 1. Obstructing proximal right ureteral stone. 2. Urinary sepsis. PROCEDURES PERFORMED: 1. Cystourethroscopy. 2. Right retrograde pyelogram. 3. Right 6-Georgian x 26-cm double-J ureteral stent placement. ANESTHESIA: General. COMPLICATIONS: None. ESTIMATED BLOOD LOSS: Less than 5 mL. INDICATIONS FOR PROCEDURE: The patient is a 48-year-old female who presented with septic shock and was found to have an obstructing 5 mm proximal right ureteral stone. She was counseled regarding her options and elected for the above-mentioned procedure. DESCRIPTION OF PROCEDURE: The patient was met in the preoperative holding area where her procedure, risks, benefits, and alternatives were reviewed in detail. Informed consent was obtained and she was brought back to the operating room, placed supine on the operating table. A timeout was called, identifying the correct patient, procedure, preoperative antibiotics and right side laterality. All members of surgical team were in agreement. General anesthesia was induced and she was repositioned into dorsal lithotomy, prepped and draped in a sterile fashion. A 21-Georgian rigid cystoscope was placed atraumatically through urethra into the bladder. No abnormalities noted within her urethra. Her bladder was small capacity, mildly trabeculated and had a suprapubic tube in place. Her ureteral orifices were small and orthotopic in position. A sensor wire was used to cannulate the right ureteral orifice. Over the wire, a 5-Georgian open-ended ureteral catheter was placed. Through this, a retrograde pyelogram was shot identifying the stone had migrated to the mid to distal ureter. There was significant proximal dilation and tortuosity near the ureteropelvic junction. The wire was replaced and fed up to the renal pelvis under fluoroscopic guidance. Over the wire, a 6-Georgian x 26-cm double-J ureteral stent without a string was placed under direct vision. Good proximal positioning was noted within the renal pelvis on fluoroscopy. Distal curl was seen within the bladder. The bladder was reinspected. No trauma was noted. The bladder was emptied and the scope was removed under direct vision. The patient was awoken and transferred to the PACU in stable condition with plans for followup with Dr. Sanchez at for ureteroscopy, laser lithotripsy and bladder Botox. ELLIE MCELROY MD DR: RENETTA/margaux JOB#: [id number] / [id number]
[2018-03-29] MEDS ORDERED: OXYB10TA PO (23:05)
[2018-03-29] MEDS: OXYBUTYNIN CHLORIDE 5 MG TABLET PO SCH (23:35)
[2018-03-29 23:44] LABS: U PREG PATIENT NEGATIVE (NEG)
[2018-03-30 03:20] VITALS: BP 110/64
[2018-03-30] MEDS: PIPERACILLIN/TAZOBACTAM 3.375 GM in IV NORMAL SALINE 50ML 50 ML IV SCH ×3 (05:56→17:12)
[2018-03-30 07:00] VITALS: BP 107/66
--- NOTE | 2018-03-30 07:59 | PDOC ---
Provider Note Provider Note [id number] ALLIE VELÁSQUEZ MD Mar 30, 2018 07:59
--- NOTE | 2018-03-30 08:18 | PN ---
DATE: 03/30/2018 SUBJECTIVE: The patient feels well, though she is having stent discomfort. She is afebrile. Vitals are stable and good urine output, so we will discontinue her IV fluids. A second urine culture now shows Pseudomonas with sensitivities pending, so we will continue the Zosyn and likely be able to discontinue the Zyvox per ID. Once we have confirmation on sensitivities, we can switch to oral medication, likely quinolone and discharge as she is no longer obstructed. Renal function remains good on her BMP. ALLIE VELÁSQUEZ MD DR: ELIDA/margaux JOB#: [id number] / [id number]
[2018-03-30] MEDS: LACTOBACILLUS RHAMNOSUS GG 1 CAPSULE. PO SCH ×2 (08:43→21:03)
[2018-03-30] MEDS: POLYETHYLENE GLYCOL 3350 17 GM PACKET. PO SCH (08:43)
[2018-03-30] MEDS: OXYBUTYNIN CHLORIDE 5 MG TABLET PO SCH ×2 (08:43→21:03)
[2018-03-30] MEDS: LINEZOLID 600 MG TABLET PO SCH (08:43)
--- NOTE | 2018-03-30 09:15 | PDOC ---
Infectious Disease Note Subjective Subjective feeling better ROS ROS no n/v/d/sob Vital Sign Vital Signs Vital Signs Date Time Temp Pulse Resp B/P (MAP) Pulse Ox O2 Delivery O2 Flow Rate FiO2 03/30/18 07:00 98.1 82 16 107/66 (80) 95 Room Air 98.1 03/29/18 16:21 10 Physical Exam PHYSICAL EXAM GENERAL: The patient is slightly propped up in bed, alert, smiling. VITAL SIGNS: stable HEENT: Normal conjunctivae. Oral cavity pink and dry. NECK: Supple. LUNGS: Clear to auscultation. HEART: S1, S2. ABDOMEN: Nondistended. Bowel sounds active. Soft, nontender. Suprapubic catheter intact. No signs of infection. EXTREMITIES: No gross edema or cyanosis. SKIN: Warm without rash. NEUROLOGIC: Alert and oriented x 3. unable to use legs Labs Lab Laboratory Tests Test 03/29/18 14:55 Urine Test Negative (NEG) Micro URINE CULTURE Preliminary Preliminary report URINE CULTURE RES 1 Preliminary Comment Pseudomonas aeruginosa Greater than 100,000 colony forming units per mL Performed at: [facility] - [facility] [address] [address], [place], [place] [id number] [employer] Drying Department: PRATEEK Stein MD, Phone: [phone] Objective Assessment Sepsis w/ hypotension responsive to IVF Fever Leukocytosis - better MS Chronic supra-pubic catheter Ureteral stone with obstruction Plan Plan of Care cont Zosyn d/c zyvox Probiotics Monitor labs/temp Supportive care D/w RN cysto done, stent placed LILIYA SUTTON MD Mar 30, 2018 09:15
[2018-03-30 11:00] VITALS: BP 103/47
--- NOTE | 2018-03-30 12:49 | PDOC ---
Subjective: Subjective: Wants to go home. Has stooled more than once - says she was told she didn't need Miralax anymore. Tolerating PO. No abd pain but feels a little bloated. Objective: Vital Signs: Vital Signs Date Time Temp Pulse Resp B/P (MAP) Pulse Ox O2 Delivery O2 Flow Rate FiO2 03/30/18 11:00 97.7 77 16 103/47 (65) 98 Room Air 97.7 03/29/18 16:21 10 Labs: Laboratory Tests Test 03/29/18 14:55 03/30/18 09:15 Urine Test Negative Potassium Level 3.8 mmol/L URINE CULTURE Preliminary Preliminary report URINE CULTURE RES 1 Preliminary Comment Pseudomonas aeruginosa PE: GEN: NAD, eating lunch LUNGS: CTAB HEART: RRR ABD: S/NT NEURO/PSYCH: A & O 3 A/P: Obstructive uropathy, sepsis - s/p stent placement, +pseudomonas aeruginosa Constipation - resolved Hypokalemia - resolved -- Doing well from GI standpoint. Can back off on Miralax. CLAUS VICK Mar 30, 2018 12:49
[2018-03-30] MEDS ORDERED: POLYETHYLENE GLYCOL 3350 17 GM PACKET. PO PRN (13:00)
[2018-03-30 15:00] VITALS: BP 112/62
[2018-03-30 19:25] VITALS: BP 107/52
[2018-03-30 22:58] VITALS: BP 103/62
[2018-03-31 03:17] VITALS: BP 114/54
[2018-03-31] MEDS: PIPERACILLIN/TAZOBACTAM 3.375 GM in IV NORMAL SALINE 50ML 50 ML IV SCH ×6 (06:01→23:34)
[2018-03-31 07:00] VITALS: BP 86/54
--- NOTE | 2018-03-31 08:53 | PDOC ---
Provider Note Provider Note [id number] ALLIE VELÁSQUEZ MD Mar 31, 2018 08:53
[2018-03-31] MEDS: OXYBUTYNIN CHLORIDE 5 MG TABLET PO SCH ×2 (09:00→20:47)
[2018-03-31] MEDS: LACTOBACILLUS RHAMNOSUS GG 1 CAPSULE. PO SCH ×2 (09:11→20:47)
--- NOTE | 2018-03-31 09:53 | PDOC ---
Infectious Disease Note Subjective Subjective feeling better ROS ROS no n/v/d/sob Vital Sign Vital Signs Vital Signs Date Time Temp Pulse Resp B/P (MAP) Pulse Ox O2 Delivery O2 Flow Rate FiO2 03/31/18 07:00 98.4 62 16 86/54 (65) 97 Room Air 98.4 03/30/18 20:16 10.0 Physical Exam PHYSICAL EXAM GENERAL: The patient is slightly propped up in bed, alert, smiling. VITAL SIGNS: stable HEENT: Normal conjunctivae. Oral cavity pink and dry. NECK: Supple. LUNGS: Clear to auscultation. HEART: S1, S2. ABDOMEN: Nondistended. Bowel sounds active. Soft, nontender. Suprapubic catheter intact. No signs of infection. EXTREMITIES: No gross edema or cyanosis. SKIN: Warm without rash. NEUROLOGIC: Alert and oriented x 3. unable to use legs Labs Micro URINE CULTURE Preliminary Preliminary report URINE CULTURE RES 1 Preliminary Comment Pseudomonas aeruginosa Greater than 100,000 colony forming units per mL Performed at: [facility] - [facility] [address] [address], [place], [place] [id number] Service Line Layer: PRATEEK Stein MD, Phone: [phone] Objective Assessment Sepsis w/ hypotension responsive to IVF Fever Leukocytosis - better MS Chronic supra-pubic catheter Ureteral stone with obstruction Plan Plan of Care cont Zosyn Probiotics Monitor labs/temp Supportive care D/w RN cysto done, stent placed d/w LILIYA Pennington MD Mar 31, 2018 09:53
[2018-03-31 11:00] VITALS: BP 105/64
--- NOTE | 2018-03-31 11:14 | PDOC ---
Objective: Objective: Reviewed w/ RN - no GI concerns, is stooling. Awaiting final urine culture prior to DC. Vital Signs: Vital Signs Date Time Temp Pulse Resp B/P (MAP) Pulse Ox O2 Delivery O2 Flow Rate FiO2 03/31/18 07:00 98.4 62 16 86/54 (65) 97 Room Air 98.4 03/30/18 20:16 10.0 PE: GEN: NAD LUNGS: room air HEART: RRR NEURO/PSYCH: A & O 3 - talking on the phone w/ family A/P: Obstructive uropathy, sepsis -- Currently without GI issues, await sensitivity report and DC. CLAUS VICK Mar 31, 2018 11:14
[2018-03-31 15:00] VITALS: BP 96/54
[2018-03-31 19:00] VITALS: BP 78/53
--- NOTE | 2018-03-31 22:50 | PN ---
DATE: 03/31/2018 Everything is going well. She feels well. She is afebrile and is asymptomatic now. We are awaiting sensitivity reports on the pseudomonas to make sure that her oral therapy as an outpatient will be viable as she had a complicated UTI with obstruction and sepsis. Discussed with Dr. Vasquez and we will discharge as soon as the oral drug of choice is available to us. ALLIE VELÁSQUEZ MD DR: ELIDA/nts JOB#: [id number] / [id number]
[2018-03-31 23:00] VITALS: BP 96/44
[2018-04-01 03:32] VITALS: BP 118/51
[2018-04-01 07:00] VITALS: BP 102/50
[2018-04-01] MEDS: PIPERACILLIN/TAZOBACTAM 3.375 GM in IV NORMAL SALINE 50ML 50 ML IV SCH (07:09)
--- NOTE | 2018-04-01 08:40 | DISCH ---
DISCHARGE DISCHARGE INFORMATION: CONDITION ON DISCHARGE: Stable CODE STATUS: Code Status: Full POST DISCHARGE ORDERS: ACTIVITY ORDERS: No restrictions WEIGHT BEARING STATUS: No restrictions DIET AFTER DISCHARGE: Regular FOLLOW-UP: PHYSICIAN FOLLOW-UP: per valentin alvares TREATMENT/EQUIPMENT ORDERS: ADAPTIVE EQUIPMENT NEEDED: None DISCHARGE MEDICATIONS: Home Meds Reported Medications Oxybutynin Chloride (OXYBUTYNIN CHLORIDE ER) 10 Mg Tab.er.24, 2 TAB PO DAILY, # 30 TAB 5 Refills 03/29/18 Cholecalciferol (Vitamin D3) (VITAMIN D) 1,000 Unit Capsule, 1 CAP PO DAILY, # 30 CAP 3 Refills 03/24/18 ALLIE VELÁSQUEZ MD Apr 01, 2018 08:40
--- NOTE | 2018-04-01 08:48 | PDOC ---
Provider Note Provider Note [id number] ALLIE VELÁSQUEZ MD Apr 01, 2018 08:48
[2018-04-01] MEDS: OXYBUTYNIN CHLORIDE 5 MG TABLET PO SCH (09:00)
[2018-04-01] MEDS: LACTOBACILLUS RHAMNOSUS GG 1 CAPSULE. PO SCH (09:44)
--- NOTE | 2018-04-01 11:21 | PDOC ---
Subjective: Subjective: Excited to go home, no GI complaints. Objective: Vital Signs: Vital Signs Date Time Temp Pulse Resp B/P (MAP) Pulse Ox O2 Delivery O2 Flow Rate FiO2 04/01/18 08:15 Room Air 04/01/18 07:00 97.8 75 18 102/50 (67) 97 97.8 03/31/18 20:09 10.0 Labs: URINE CULTURE Final Final report URINE CULTURE RES 1 Final Comment Pseudomonas aeruginosa Greater than 100,000 colony forming units per mL ANTIMICROBIAL SUSCEPTIBILITY Final Comment S = Susceptible; I = Intermediate; R = Resistant P = Positive; N = Negative MICS are expressed in micrograms per mL Antibiotic RSLT#1 RSLT#2 RSLT#3 RSLT#4 Amikacin S<=2 Cefepime S<=1 Ceftazidime S<=1 Ciprofloxacin S<=0.25 Gentamicin S<=1 Imipenem S<=1 Levofloxacin S =0.5 Meropenem S<=0.25 Piperacillin S<=4 Ticarcillin S =16 Tobramycin S<=1 PE: GEN: NAD LUNGS: CTAB HEART: RRR ABD: S/ND/NT NEURO/PSYCH: A & O 3 A/P: Obstructive uropathy Constipation - resolved -- DC per primary. Use Miralax PRN. Follow-up for screening colonoscopy. CLAUS VICK Apr 01, 2018 11:21
--- NOTE | 2018-04-01 11:26 | PDOC ---
Infectious Disease Note Subjective Subjective feeling better ROS ROS no n/v/d/sob Vital Sign Vital Signs Vital Signs Date Time Temp Pulse Resp B/P (MAP) Pulse Ox O2 Delivery O2 Flow Rate FiO2 04/01/18 08:15 Room Air 04/01/18 07:00 97.8 75 18 102/50 (67) 97 97.8 03/31/18 20:09 10.0 Physical Exam PHYSICAL EXAM GENERAL: The patient is slightly propped up in bed, alert, smiling. VITAL SIGNS: stable HEENT: Normal conjunctivae. Oral cavity pink and dry. NECK: Supple. LUNGS: Clear to auscultation. HEART: S1, S2. ABDOMEN: Nondistended. Bowel sounds active. Soft, nontender. Suprapubic catheter intact. No signs of infection. EXTREMITIES: No gross edema or cyanosis. SKIN: Warm without rash. NEUROLOGIC: Alert and oriented x 3. unable to use legs Labs Micro URINE CULTURE Preliminary Preliminary report URINE CULTURE RES 1 Preliminary Comment Pseudomonas aeruginosa Greater than 100,000 colony forming units per mL Performed at: [facility] - [facility], [place], [place] [id number] Company Driver: PRATEEK Stein MD, Phone: [phone] Objective Assessment Sepsis w/ hypotension responsive to IVF Fever Leukocytosis - better MS Chronic supra-pubic catheter Ureteral stone with obstruction Plan Plan of Care d/c ok on cipro Probiotics Monitor labs/temp Supportive care D/w RN cysto done, stent placed d/w LILIYA Pennington MD Apr 01, 2018 11:26
--- NOTE | 2018-04-01 16:07 | DS ---
DATE OF DISCHARGE: 04/01/2018 HOSPITAL SUMMARY: A 48-year-old white female admitted with a febrile illness that was felt to be likely urinary tract in origin as she has a suprapubic catheter in. Blood cultures had no growth. Urine culture initially grew out urogenital organisms and subsequently grew out Pseudomonas sensitive to Cipro and piperacillin and cephalosporins. CT scan showed a proximal 5 mm ureteral stone with hydronephrosis. The rest of the laboratory studies including renal function were unremarkable. Urology was consulted and performed a cystoscopy and a stent placement to relieve the hydronephrosis and she was continued on IV Zosyn and Zyvox until the urine culture revealed the pathogen. She will be discharged on Cipro orally now and followed as an outpatient. FINAL DIAGNOSES: 1. Sepsis secondary to urinary tract infection. 2. Hydronephrosis secondary to obstructing ureteropelvic junction stone. OPERATIONS AND PROCEDURES: Cystoscopy, ureteroscopy and stent placement, right kidney. COMPLICATIONS: None. CONSULTATIONS: Jaskaran Diaz MD and King Vasquez MD. DISPOSITION: She will be discharged on Cipro 250 mg twice a day for 2 weeks until she is seen in [facility] and the stent removed during the care of the suprapubic catheter. Rest of home meds remain the same and office followup with me on as scheduled and her prognosis is guarded given her neurologic problems. ALLIE VELÁSQUEZ MD DR: ELIDA/nts JOB#: [id number] / [id number]
== END 2018-04-01 12:30 | disposition home health service (06) | DRG 853 ==
LOC: 4 NORTH 14:04
PROVIDERS: ADMIT Family Medicine; ATTEND Family Medicine
PROC: 0T768DZ Dilation of Right Ureter with Intraluminal Device, Via Natural or Artificial Opening Endoscopic (ICD-10-PCS; principal; 2018-03-24)
PROC: BT1D1ZZ Fluoroscopy of Right Kidney, Ureter and Bladder using Low Osmolar Contrast (ICD-10-PCS; 2018-03-24)
DX: A41.52 Sepsis due to Pseudomonas (principal); R65.21 Severe sepsis with septic shock; J98.11 Atelectasis; N13.6 Pyonephrosis; E87.6 Hypokalemia; G35 Multiple sclerosis; K59.00 Constipation, unspecified; N21.0 Calculus in bladder; N31.9 Neuromuscular dysfunction of bladder, unspecified; Z87.440 Personal history of urinary (tract) infections; Z93.59 Other cystostomy status; Z99.3 Dependence on wheelchair; Z79.899 Other long term (current) drug therapy
CPT/HCPCS: 36415; 71045; 74018; 74176; 74420; 80048; 81001; 81025; 83605; 84132; 85007; 85025; 87040; 87086; 87186; C1713; C1769; C2617; J0696; J1100; J2001; J2405; J2543; J2704; J7030; J7120; Q9967

== ENCOUNTER → 2019-02-05 | Outpatient (CLI) | payer BC ==
[2018-05-01 07:00] VITALS: BP 111/67
[~2019-02-05] MED LIST changes: +CHOL100013 PO; +CHOL2000 PO; +OXYB10TA2 PO; +OXYB5TAB7 PO
[2019-02-05 17:42] LABS: BILIRUBIN,URINE NEGATIVE (NEG); CLARITY,URINE CLOUDY; COLOR,URINE YELLOW; NITRITE,URINE POSITIVE (NEG); PROTEIN,URINE 100 mg/dL (NEG-TRACE)
[2019-02-05 17:49] LABS: BACTERIA,URINE MANY /HPF (0-FEW); RBC,URINE 20-40 /HPF (0-2); SQUAMOUS EPITHELIAL CELL,UR FEW /LPF; WBC,URINE 20-40 /HPF (0-4)
== END | disposition home or self-care (01) ==
LOC: LAB 17:30
PROVIDERS: ATTEND Family Medicine
DX: N39.0 Urinary tract infection, site not specified (principal)
CPT/HCPCS: 81001

== ENCOUNTER → 2019-03-20 | Outpatient (CLI) | payer BC ==
[2018-05-01 07:00] VITALS: BP 111/67
[~2019-03-20] MED LIST changes: +OXYB5TAB10 PO; -OXYB5TAB7 PO
--- NOTE | 2019-03-21 14:21 | KCIC ---
BILATERAL SCREENING MAMMOGRAM, 3-D History: Routine screening. Comparison: Bilateral mammogram October 27, 2012. Technique: MLO and CC digital tomosynthesis (3D) images obtained. Radiologist reviewed these images on dedicated workstation. Findings: Breast Tissue Density D :The breasts are extremely dense, which lowers the sensitivity of mammography. There are a few benign calcifications in each breast. There are no dominant masses, suspicious microcalcifications, or architectural distortion. IMPRESSION: No mammographic evidence of malignancy. Recommend routine screening. BI-RADS category 2: Benign findings. The images were reviewed with computer-aided detection. Patient information is entered into reminder system with a target due date for the next screening mammogram. Mammography is the most sensitive method for finding small breast cancers, but it does not detect them all and is not a substitute for careful clinical examination. A negative mammogram does not negate a clinically suspicious finding and should not result in delay in biopsying a clinically suspicious abnormality. "Our facility is accredited by the [employer] Mammography Program." Electronically signed by: Orestes Gregg MD (03/21/2019 2:18 PM) [id number]
== END | disposition home or self-care (01) ==
LOC: KCIC MAMMO 14:02
PROVIDERS: ATTEND Family Medicine
DX: Z12.31 Encounter for screening mammogram for malignant neoplasm of breast (principal); N64.89 Other specified disorders of breast
CPT/HCPCS: 77063; 77067

== ENCOUNTER 2019-06-02 19:25 | Emergency (ER) | payer BC ==
[~2019-06-02] VITALS: Ht 157.5 cm; Wt 54.4 kg
[2019-06-02 21:32] LABS: BASO % 0 % (0-3); EOS % 0 % (0-3); HEMATOCRIT 37.8 % (36.0-47.0); HEMOGLOBIN 12.4 g/dL (12.0-15.5); LYMPH # 0.7 x10^3/uL (1.0-4.8); LYMPH % 5 % (24-48); MEAN CORPUSCULAR HEMOGLOBIN 28 pg (25-35); MEAN CORPUSCULAR HGB CONC 33 g/dL (31-37); MEAN CORPUSCULAR VOLUME 86 fL (79-100); MONO # 0.9 x10^3/uL (0.0-1.1); MONO % 7 % (0-9); NEUT # 11.8 x10^3/uL (1.8-7.7); NEUT % 88 % (31-73); PLATELET COUNT 281 x10^3/uL (140-400); RED BLOOD COUNT 4.38 x10^6/uL (3.50-5.40); RED CELL DISTRIBUTION WIDTH 12.6 % (11.5-14.5); WHITE BLOOD COUNT 13.4 x10^3/uL (4.0-11.0)
--- NOTE | 2019-06-02 21:41 | PHYS DOC ---
Past Medical History Past Medical History: Other Additional Past Medical Histor: MS, NEUROGENIC BLADDER Past Surgical History: , Tubal ligation Additional Past Surgical Histo: MRSA, uterine ablation, Removal of milk sac from right axilla, RENAL STENT Alcohol Use: Rarely Drug Use: None Adult General Chief Complaint Chief Complaint: MULTIPLE COMPLAINTS HPI HPI 49-year-old female who underlying history of multiple sclerosis presents to the emergency department with complaints of 2 days of not feeling well. She describes generalized weakness. Patient is concerned that she's had symptoms like this before when she had an obstructive kidney stone she describes quest ionable fever, chills. She denies any nausea, vomiting, abdominal pain, headache or visual change. She states overall she's just weaker. Patient states nothing makes symptoms worse, nothing makes better. Review of Systems Review of Systems Constitutional: fever/chills Respiratory: Denies cough or shortness of breath [] Cardiovascular: No additional information not addressed in HPI [] GI: Denies abdominal pain, nausea, vomiting, bloody stools or diarrhea [] : Denies dysuria or hematuria [] Musculoskeletal: Denies back pain or joint pain [] Neurologic: Denies headache, focal weakness or sensory changes [] All other systems were reviewed and found to be within normal limits, except as documented in this note. Allergies Allergies Allergies Coded Allergies Type Severity Reaction Last Updated Verified No Known Drug Allergies 06/09/13 No Physical Exam Physical Exam Constitutional: Well developed, well nourished, no acute distress, non-toxic appearance. [] Cardiovascular:Heart rate regular rhythm, no murmur [] Lungs & Thorax: Bilateral breath sounds clear to auscultation [] Abdomen: Bowel sounds normal, soft, no tenderness, no masses, no pulsatile masses. [] Skin: Warm, dry, no erythema, no rash. [] Back: No tenderness, no CVA tenderness. [] Extremities: No tenderness, no edema. [] Neurologic: Alert and oriented X 3, no focal deficits noted. [] Psychologic: Affect normal, judgement normal, mood normal. [] Current Patient Data Vital Signs Vital Signs Date Time Temp Pulse Resp B/P (MAP) Pulse Ox O2 Delivery O2 Flow Rate FiO2 06/02/19 20:20 100.0 102 18 145/63 (90) 98 Room Air 100.0 Lab Values Laboratory Tests Test 06/02/19 20:52 06/02/19 21:35 White Blood Count 13.4 x10^3/uL (4.0-11.0) H Red Blood Count 4.38 x10^6/uL (3.50-5.40) Hemoglobin 12.4 g/dL (12.0-15.5) Hematocrit 37.8 % (36.0-47.0) Mean Corpuscular Volume 86 fL (79-100) Mean Corpuscular Hemoglobin 28 pg (25-35) Mean Corpuscular Hemoglobin Concent 33 g/dL (31-37) Red Cell Distribution Width 12.6 % (11.5-14.5) Platelet Count 281 x10^3/uL (140-400) Neutrophils (%) (Auto) 88 % (31-73) H Lymphocytes (%) (Auto) 5 % (24-48) L Monocytes (%) (Auto) 7 % (0-9) Eosinophils (%) (Auto) 0 % (0-3) Basophils (%) (Auto) 0 % (0-3) Neutrophils # (Auto) 11.8 x10^3/uL (1.8-7.7) H Lymphocytes # (Auto) 0.7 x10^3/uL (1.0-4.8) L Monocytes # (Auto) 0.9 x10^3/uL (0.0-1.1) Eosinophils # (Auto) 0.0 x10^3/uL (0.0-0.7) Basophils # (Auto) 0.0 x10^3/uL (0.0-0.2) Segmented Neutrophils % 85 % (35-66) H Band Neutrophils % 14 % (0-9) H Lymphocytes % 1 % (24-48) L Platelet Estimate Adequate (ADEQUATE) Sodium Level 136 mmol/L (136-145) Potassium Level 3.8 mmol/L (3.5-5.1) Chloride Level 99 mmol/L (98-107) Carbon Dioxide Level 26 mmol/L (21-32) Anion Gap 11 (6-14) Blood Urea Nitrogen 20 mg/dL (7-20) Creatinine 0.8 mg/dL (0.6-1.0) Estimated GFR (Cockcroft-Gault) 76.6 BUN/Creatinine Ratio 25 (6-20) H Glucose Level 122 mg/dL (70-99) H Lactic Acid Level 1.0 mmol/L (0.4-2.0) Calcium Level 9.2 mg/dL (8.5-10.1) Total Bilirubin 0.5 mg/dL (0.2-1.0) Aspartate Amino Transferase (AST) 15 U/L (15-37) Alanine Aminotransferase (ALT) 13 U/L (14-59) L Alkaline Phosphatase 74 U/L (46-116) Total Protein 8.4 g/dL (6.4-8.2) H Albumin 3.4 g/dL (3.4-5.0) Albumin/Globulin Ratio 0.7 (1.0-1.7) L Serum Test, Qualitative Negative (NEG) Urine Collection Type Unknown Urine Color Yellow Urine Clarity Turbid Urine pH 8.0 Urine Specific [place] 1.020 Urine Protein 100 mg/dL (NEG-TRACE) Urine Glucose (UA) Negative mg/dL (NEG) Urine Ketones (Stick) 15 mg/dL (NEG) Urine Blood Small (NEG) Urine Nitrite Positive (NEG) Urine Bilirubin Negative (NEG) Urine Urobilinogen Dipstick 1.0 mg/dL (0.2 mg/dL) Urine Leukocyte Esterase Large (NEG) Urine RBC 1-2 /HPF (0-2) Urine WBC Tntc /HPF (0-4) Urine Squamous Epithelial Cells Occ /LPF Urine Bacteria Many /HPF (0-FEW) Urine Mucus Marked /LPF Laboratory Tests 06/02/19 20:52 Laboratory Tests 06/02/19 20:52 EKG EKG [] Radiology/Procedures Radiology/Procedures [] Course & Med Decision Making Course & Med Decision Making Pertinent Labs and Imaging studies reviewed. (See chart for details) []49-year-old female who underlying history of multiple sclerosis presents to the emergency department with complaints of 2 days of not feeling well. She describes generalized weakness. Patient is concerned that she's had symptoms like this before when she had an obstructive kidney stone she describes questionable fever, chills. She denies any nausea, vomiting, abdominal pain, headache or visual change. She states overall she's just weaker. Patient states nothing makes symptoms worse, nothing makes better. Laboratory values reviewed, white blood cell count 13.4, urinalysis reveals evidence of urinary tract infection, lactic acid 1.0, metabolic profile unremarkable VS been stable the emergency department, discussed with her primary care physician Dr. Cervantes will plan for by mouth antibiotic therapy with recommendations for follow-up as an outpatient in the next few days. Discussed findings with patient/family at bedside Discussed abx x 5 days Dragrika Disclaimer Dragon Disclaimer This electronic medical record was generated, in whole or in part, using a voice recognition dictation system. Departure Departure Impression: Primary Impression: UTI (urinary tract infection) Disposition: HOME, SELF-CARE Admitting Physician: Tino Cervantes Condition: STABLE Referrals: TINO CERVANTES MD (PCP) Patient Instructions: Urinary Tract Infection Additional Instructions: Recommend follow up with PCP 3 - 5 days Return to the ER with worsening symptoms, intractable pain, fever, altered mental status Tylenol/Motrin as needed for pain Take antibiotics as directed Call office (DR CERVANTES) for close follow up given past history Scripts Ciprofloxacin Hcl (CIPRO) 250 Mg Tablet 2 TAB PO BID for infection for 5 Days, #20 TAB Prov: MICHAEL VICKERS MD 06/02/19 Problem Qualifiers Primary Impression: UTI (urinary tract infection) Urinary tract infection type: site unspecified Hematuria presence: with hematuria Qualified Codes: N39.0 - Urinary tract infection, site not specified; R31.9 - Hematuria, unspecified MICHAEL VICKERS MD Jun 02, 2019 21:41
[2019-06-02 21:42] LABS: CALCIUM 9.2 mg/dL (8.5-10.1); CREATININE 0.8 mg/dL (0.6-1.0); GFR 76.6; POTASSIUM 3.8 mmol/L (3.5-5.1)
[2019-06-02 21:45] LABS: BILIRUBIN,URINE NEGATIVE (NEG); CLARITY,URINE TURBID; NITRITE,URINE POSITIVE (NEG); PROTEIN,URINE 100 mg/dL (NEG-TRACE)
[2019-06-02 21:46] LABS: PREG TEST PT QUAL NEGATIVE (NEG)
[2019-06-02 21:47] LABS: ALBUMIN 3.4 g/dL (3.4-5.0); ALBUMIN/GLOBULIN RATIO 0.7 (1.0-1.7); TOTAL BILIRUBIN 0.5 mg/dL (0.2-1.0); TOTAL PROTEIN 8.4 g/dL (6.4-8.2)
[2019-06-02 21:54] LABS: COLOR,URINE YELLOW
[2019-06-02 21:55] LABS: WBC,URINE TNTC /HPF (0-4)
[2019-06-02 21:56] LABS: BACTERIA,URINE MANY /HPF (0-FEW); SQUAMOUS EPITHELIAL CELL,UR OCC /LPF
[2019-06-02 21:59] LABS: % BANDS 14 % (0-9); % LYMPHS 1 % (24-48); % SEGS 85 % (35-66); PLT ESTIMATE ADEQUATE (ADEQUATE)
[2019-06-02] MEDS ORDERED: CIPR250T30 PO (22:42)
[2019-06-02 22:47] LABS: INFLUENZA A PATIENT NEGATIVE (NEGATIVE); INFLUENZA B PATIENT POSITIVE (NEGATIVE)
[2019-06-02 22:48] VITALS: BP 124/66
== END 2019-06-02 23:04 | disposition home or self-care (01) ==
LOC: ER 19:25
DX: N39.0 Urinary tract infection, site not specified (principal); R31.9 Hematuria, unspecified; Z98.51 Tubal ligation status; Z98.890 Other specified postprocedural states; Z96.0 Presence of urogenital implants
CPT/HCPCS: 36415; 80053; 81001; 83605; 84703; 85007; 85025; 87086; 87804; 99284

== ENCOUNTER → 2019-09-16 | Outpatient (CLI) | payer BC ==
[2019-06-06 07:00] VITALS: BP 117/57
[~2019-09-16] MED LIST changes: +CIPR250T30 PO; -OXYB10TA2 PO; +OXYB10TA26 PO
[2019-09-16 10:19] LABS: BILIRUBIN,URINE NEGATIVE (NEG); CLARITY,URINE CLEAR; COLOR,URINE YELLOW; NITRITE,URINE POSITIVE (NEG); PH,URINE 7.5 (<5.0-8.0); PROTEIN,URINE 100 mg/dL (NEG-TRACE)
[2019-09-16 10:42] LABS: BACTERIA,URINE MANY /HPF (0-FEW); RBC,URINE RARE /HPF (0-2)
== END ==
LOC: SPEC 09:59
PROVIDERS: ATTEND Family Medicine
DX: N39.0 Urinary tract infection, site not specified (principal)
CPT/HCPCS: 81001; 87086; 87186

== ENCOUNTER 2020-04-11 12:02 | Emergency (ER) | payer BC ==
[~2020-04-11] VITALS: Ht 165.1 cm; Wt 44.8 kg
[2020-04-11] MEDS ORDERED: IV NORMAL SALINE 500ML BAG 500 ML IV ONE (14:15)
[2020-04-11 14:29] LABS: BASO # 0.1 x10^3/uL (0.0-0.2); BASO % 1 % (0-3); EOS # 0.1 x10^3/uL (0.0-0.7); EOS % 2 % (0-3); HEMATOCRIT 38.4 % (36.0-47.0); HEMOGLOBIN 12.7 g/dL (12.0-15.5); LYMPH # 1.7 x10^3/uL (1.0-4.8); LYMPH % 23 % (24-48); MEAN CORPUSCULAR HEMOGLOBIN 28 pg (25-35); MEAN CORPUSCULAR HGB CONC 33 g/dL (31-37); MEAN CORPUSCULAR VOLUME 86 fL (79-100); MONO # 0.5 x10^3/uL (0.0-1.1); MONO % 7 % (0-9); NEUT # 4.8 x10^3/uL (1.8-7.7); NEUT % 68 % (31-73); PLATELET COUNT 293 x10^3/uL (140-400); RED BLOOD COUNT 4.47 x10^6/uL (3.50-5.40); WHITE BLOOD COUNT 7.1 x10^3/uL (4.0-11.0)
[2020-04-11 14:44] LABS: CALCIUM 9.5 mg/dL (8.5-10.1); CREATININE 0.8 mg/dL (0.6-1.0); GFR 76.2
[2020-04-11] MEDS ORDERED: DIATRIZOATE MEGLUMINE 18% 300 ML SOLUTION. BLADIN ONE (14:45)
[2020-04-11 14:50] LABS: ALBUMIN 3.8 g/dL (3.4-5.0); TOTAL BILIRUBIN 0.3 mg/dL (0.2-1.0); TOTAL PROTEIN 7.5 g/dL (6.4-8.2)
[2020-04-11 15:29] VITALS: BP 134/82
--- NOTE | 2020-04-11 16:01 | RAD ---
EXAM: Cystogram. HISTORY: 50-year-old female with an indwelling suprapubic catheter presents with bladder spasms and incontinence. There is clinical concern for catheter malfunction. TECHNIQUE: A lap machine tender image of the pelvis was obtained. Fluoroscopic imaging was then performed during the instillation of of water-soluble contrast through an indwelling suprapubic catheter. The total fluoroscopy time was 0.7 minutes. 5 fluoroscopic images were obtained. COMPARISON: CT dated 03/27/2018. FINDINGS: The lap machine tender image of the pelvis demonstrates stool within the rectosigmoid colon. There is redundancy overlying the midline pelvis possibly due to bladder stones. There is a suspected left pelvic phlebolith. There is a suprapubic catheter overlying the pelvis to the right of midline. The images obtained during the instillation of water-soluble contrast in the bladder demonstrate intraluminal positioning of the suprapubic catheter and contrast opacification of the bladder lumen. There is no evidence of contrast extravasation. There is focal outpouching of the bladder base at the level of the urethra. The patient experienced a bladder spasm and was incontinent of urine and a low bladder volume. IMPRESSION: 1. Suprapubic catheter in expected position within the bladder lumen. No extravasation is seen and the catheter is patent. 2. Bladder spasm resulting in urinary incontinence at a low bladder volume. This limits evaluation for bladder mucosal lesions. 3. Small outpouching of the bladder at the level of the urethra. 4. Suspected bladder stones. Electronically signed by: Amanda Gotti MD (04/11/2020 3:59 PM) [id number]
[2020-04-11] MEDS ORDERED: OPIU1SUP2 RC (18:20)
[2020-04-11] MEDS ORDERED: CEPH-264 PO (18:20)
--- NOTE | 2020-04-11 18:20 | ED.ADGEN ---
Past Medical History Past Medical History: MRSA, Other Additional Past Medical Histor: MS, NEUROGENIC BLADDER Past Surgical History: , Tubal ligation Additional Past Surgical Histo: uterine ablation,Removal of milk sac from right axilla,RENAL STENT Smoking Status: Former Smoker Additional Information: CURRENTLY VAPES. Alcohol Use: Rarely Drug Use: None General Adult EDM: Chief Complaint: URINE CATHETER PROBLEM HPI: HPI: Patient is a 50 year old female, with a history of MS and neurogenic bladder, that presents to the emergency room with complaints of severe bladder spasms since 03/30/20 and decreased output in her catheter bag for the last 4 days. Patient reports she has not emptied any urine out of her bag for the last 4 days. She states that the urine continues to come out of her urethra and saturates her briefs. She denies any fever, nausea, vomiting, diarrhea, body aches, chills, shortness of breath, or cough. Patient reports that her home health nurse changed her catheter out twice last week with no reduction in her bladder spasms. Patient states that her urine smells very strong and foul. She reports that every time she has a bladder spasm there is incontinence of urine. She currently rates her pain 8 out of 10 on the pain scale, she describes as intermittent sharp cramp. She denies any alleviating factors. Review of Systems: Review of Systems: Complete ROS is negative unless otherwise noted in HPI. Current Medications: Current Medications Medications (Trade) Dose Ordered Sig/[facility] Start Time Stop Time Status Last Admin Dose Admin Belladonna Alkaloids/Opium (B & O) 1 supp 1X ONCE 04/11/20 18:30 04/11/20 18:31 DC 04/11/20 18:45 1 SUPP Diatrizoate Meglumine (Cystografin Urethral) 300 ml 1X ONCE 04/11/20 14:45 04/11/20 14:46 DC 04/11/20 15:25 100 ML Sodium Chloride 500 ml @ 500 mls/hr 1X ONCE 04/11/20 14:15 04/11/20 15:14 DC 04/11/20 14:13 500 MLS/HR Allergies: Allergies: Allergies Coded Allergies Type Severity Reaction Last Updated Verified No Known Drug Allergies 06/09/13 No Physical Exam: PE: See Above Constitutional: Well developed, well nourished, no acute distress, non-toxic appearance. [] HENT: Normocephalic, atraumatic, bilateral external ears normal, nose normal. [] Eyes: PERRLA, EOMI, conjunctiva normal, no discharge. [] Neck: Normal range of motion, no stridor. [] Cardiovascular:Heart rate regular rhythm Lungs & Thorax: Respirations even and unlabored, no retractions, no respiratory distress Abdomen: soft; lower abdomen tenderness to palpation, no rebound tenderness; suprapubic catheter present in the lower abdomen with mild erythema at the stoma, no purulent drainage, no edema Skin: Warm, dry, no erythema, no rash. [] Extremities: No cyanosis, no edema. [] Neurologic: Alert and oriented X 3, no focal deficits noted. [] Psychologic: Affect normal, judgement normal, mood normal. [] Current Patient Data: Labs: Laboratory Tests Test 04/11/20 14:00 04/11/20 18:43 White Blood Count 7.1 x10^3/uL (4.0-11.0) Red Blood Count 4.47 x10^6/uL (3.50-5.40) Hemoglobin 12.7 g/dL (12.0-15.5) Hematocrit 38.4 % (36.0-47.0) Mean Corpuscular Volume 86 fL (79-100) Mean Corpuscular Hemoglobin 28 pg (25-35) Mean Corpuscular Hemoglobin Concent 33 g/dL (31-37) Red Cell Distribution Width 13.0 % (11.5-14.5) Platelet Count 293 x10^3/uL (140-400) Neutrophils (%) (Auto) 68 % (31-73) Lymphocytes (%) (Auto) 23 % (24-48) L Monocytes (%) (Auto) 7 % (0-9) Eosinophils (%) (Auto) 2 % (0-3) Basophils (%) (Auto) 1 % (0-3) Neutrophils # (Auto) 4.8 x10^3/uL (1.8-7.7) Lymphocytes # (Auto) 1.7 x10^3/uL (1.0-4.8) Monocytes # (Auto) 0.5 x10^3/uL (0.0-1.1) Eosinophils # (Auto) 0.1 x10^3/uL (0.0-0.7) Basophils # (Auto) 0.1 x10^3/uL (0.0-0.2) Sodium Level 141 mmol/L (136-145) Potassium Level 4.0 mmol/L (3.5-5.1) Chloride Level 103 mmol/L (98-107) Carbon Dioxide Level 26 mmol/L (21-32) Anion Gap 12 (6-14) Blood Urea Nitrogen 22 mg/dL (7-20) H Creatinine 0.8 mg/dL (0.6-1.0) Estimated GFR (Cockcroft-Gault) 76.2 BUN/Creatinine Ratio 28 (6-20) H Glucose Level 93 mg/dL (70-99) Calcium Level 9.5 mg/dL (8.5-10.1) Total Bilirubin 0.3 mg/dL (0.2-1.0) Aspartate Amino Transferase (AST) 15 U/L (15-37) Alanine Aminotransferase (ALT) 13 U/L (14-59) L Alkaline Phosphatase 60 U/L (46-116) Total Protein 7.5 g/dL (6.4-8.2) Albumin 3.8 g/dL (3.4-5.0) Albumin/Globulin Ratio 1.0 (1.0-1.7) Urine Collection Type Unknown Urine Color Yellow Urine Clarity Cloudy Urine pH 6.5 (<5.0-8.0) Urine Specific [place] 1.025 (1.000-1.030) Urine Protein 100 mg/dL (NEG-TRACE) Urine Glucose (UA) Negative mg/dL (NEG) Urine Ketones (Stick) 15 mg/dL (NEG) Urine Blood Moderate (NEG) Urine Nitrite Positive (NEG) Urine Bilirubin Negative (NEG) Urine Urobilinogen Dipstick 0.2 mg/dL (0.2 mg/dL) Urine Leukocyte Esterase Moderate (NEG) Urine RBC Occ /HPF (0-2) Urine WBC >40 /HPF (0-4) Urine Bacteria Many /HPF (0-FEW) Laboratory Tests 04/11/20 14:00 Laboratory Tests 04/11/20 14:00 Microbiology 04/11/20 Urine Culture - Final, Complete Vital Signs: Vital Signs Date Time Temp Pulse Resp B/P (MAP) Pulse Ox O2 Delivery O2 Flow Rate FiO2 04/11/20 15:29 69 134/82 (99) 96 Room Air 04/11/20 14:46 22 04/11/20 12:37 98.0 98.0 EKG: EKG: [] Heart Score: Risk Factors: Risk Factors: DM, Current or recent (<one month) smoker, HTN, HLP, family history of CAD, obesity. Risk Scores: Score 0 - 3: 2.5% MACE over next 6 weeks - Discharge Home Score 4 - 6: 20.3% MACE over next 6 weeks - Admit for Clinical Observation Score 7 - 10: 72.7% MACE over next 6 weeks - Early Invasive Strategies Radiology/Procedures: Radiology/Procedures: PROCEDURE: CYSTOGRAM EXAM: Cystogram. HISTORY: 50-year-old female with an indwelling suprapubic catheter presents with bladder spasms and incontinence. There is clinical concern for catheter malfunction. TECHNIQUE: A program aide group work image of the pelvis was obtained. Fluoroscopic imaging was then performed during the instillation of of water-soluble contrast through an indwelling suprapubic catheter. The total fluoroscopy time was 0.7 minutes. 5 fluoroscopic images were obtained. COMPARISON: CT dated 03/27/2018. FINDINGS: The program aide group work image of the pelvis demonstrates stool within the rectosigmoid colon. There is redundancy overlying the midline pelvis possibly due to bladder stones. There is a suspected left pelvic phlebolith. There is a suprapubic catheter overlying the pelvis to the right of midline. The images obtained during the instillation of water-soluble contrast in the bladder demonstrate intraluminal positioning of the suprapubic catheter and contrast opacification of the bladder lumen. There is no evidence of contrast extravasation. There is focal outpouching of the bladder base at the level of the urethra. The patient experienced a bladder spasm and was incontinent of urine and a low bladder volume. IMPRESSION: 1. Suprapubic catheter in expected position within the bladder lumen. No extravasation is seen and the catheter is patent. 2. Bladder spasm resulting in urinary incontinence at a low bladder volume. This limits evaluation for bladder mucosal lesions. 3. Small outpouching of the bladder at the level of the urethra. 4. Suspected bladder stones.[] Course & Med Decision Making: Course & Med Decision Making I have reviewed the PA/PLUCK SEPARATOR's note and Plan of Care. I was available for consultation as needed during the patient's visit in the emergency department. I agree with the clinical impression, plans and disposition.Pertinent Labs and Imaging studies reviewed. (See chart for details) 50-year-old female with history of MS and neurogenic bladder presents to the emergency room with catheter problems. Work-up included a CBC, CMP UA, and cystogram. CBC was unremarkable; CMP revealed a BUN of 22, with elevated BUN/creatinine ratio of 28 otherwise unremarkable; UA revealed a nitrite positive UTI with g reater than 40 white blood cells and many bacteria. Cystogram findings revealed that the catheter was in the expected position within the bladder lumen and also demonstrated that the bladder spasms were resulting in urinary incontinence at low bladder volumes. The patient was given a BNO suppository in the emergency department and prescription for Keflex and the BNO suppositories as written. She was advised to stop taking the hyocosamine that was previously prescribed for her bladder spasms. She was encouraged to follow-up with urology on April 18 as planned. Return to the ER symptoms worsen. [] Dragon Disclaimer: Dragon Disclaimer: This electronic medical record was generated, in whole or in part, using a voice recognition dictation system. Departure Departure Impression: Primary Impression: Bladder spasms Additional Impression: Urinary tract infection Disposition: HOME SELF CARE/HOMELESS Condition: STABLE Referrals: ALLIE VELÁSQUEZ MD (PCP) Patient Instructions: Urinary Tract Infection, [id number] Additional Instructions: Fill prescription(s) and use as directed. Avoid bladder irritants such as caffeine, carbonation, and spicy foods. Increase clear fluids. Follow up with urology next week as planned return to the ER if symptoms worsen or fever develops. Scripts Opium/Belladonna Alkaloids (BELLADONNA-OPIUM 16.2-30 SUPP) 1 Each Supp.rect 1 EACH RC Q12HR PRN for BLADDER SPASM MDD 2 for 7 Days, #14 SUPP.RECT Prov: RO GUEVARA EDUCATION SPEC 04/11/20 Cephalexin (KEFLEX) 500 Mg Capsule 500 MG PO QID for 7 Days, #28 CAP 0 Refills Prov: RO GUEVARA EDUCATION SPEC 04/11/20 Problem Qualifiers Additional Impression: Urinary tract infection Urinary tract infection type: catheter-associated UTI Indwelling urinary catheter type: cystostomy catheter Encounter type: initial encounter Qualified Codes: T83.510A - Infection and inflammatory reaction due to cystostomy catheter, initial encounter; N39.0 - Urinary tract infection, site not specified RO GUEVARA APRN Apr 11, 2020 18:20 EDITH VILLALOBOS MD Apr 17, 2020 06:05
[2020-04-11] MEDS ORDERED: OPIUM/BELLADONNA 30/16.2MG SUPP.RECT. PR ONE (18:30)
[2020-04-11 19:16] LABS: BILIRUBIN,URINE NEGATIVE (NEG); CLARITY,URINE CLOUDY; COLOR,URINE YELLOW; NITRITE,URINE POSITIVE (NEG); PH,URINE 6.5 (<5.0-8.0); PROTEIN,URINE 100 mg/dL (NEG-TRACE); UROBILINOGEN,URINE 0.2 mg/dL (0.2 mg/dL)
[2020-04-11 19:17] LABS: BACTERIA,URINE MANY /HPF (0-FEW); RBC,URINE OCC /HPF (0-2); WBC,URINE >40 /HPF (0-4)
== END 2020-04-11 19:08 | disposition home or self-care (01) ==
LOC: ER 12:02
DX: N39.0 Urinary tract infection, site not specified (principal); N32.89 Other specified disorders of bladder; Z98.51 Tubal ligation status; Z98.890 Other specified postprocedural states; Z87.891 Personal history of nicotine dependence
CPT/HCPCS: 36415; 74430; 80053; 81001; 85025; 87086; 96360; 99285; J7040; Q9958